=== PATIENT | female | born 1970 | race Caucasian/White ===

== ENCOUNTER 2017-11-12 18:17 | Emergency (ER) | payer OTHER ==
[~2017-11-12] VITALS: Ht 167.6 cm; Wt 59.0 kg
[2017-11-12 18:23] VITALS: BP 154/95; PULSE 62; RESP 16; TEMP 97.7; O2SAT 98
[2017-11-12] MEDS ORDERED: LEXA20TA PO (18:38)
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
[2017-11-12] MEDS ORDERED: ORPHENADRINE INJ 60 MG/2 ML AMP IM ONE (20:15)
[2017-11-12] MEDS ORDERED: KETOROLAC TROMETHAMINE 60 MG/2 ML (IM) VIAL IM ONE (20:15)
[2017-11-12] MEDS ORDERED: CYCL10TA PO (20:31)
[2017-11-12] MEDS ORDERED: IBUP1TAB7 PO (20:31)
== END 2017-11-12 20:37 | disposition home or self-care (01) ==
LOC: PHEFT 18:17
DX: S09.90XA Unspecified injury of head, initial encounter (principal); G44.319 Acute post-traumatic headache, not intractable; S16.1XXA Strain of muscle, fascia and tendon at neck level, initial encounter; F32.9 Major depressive disorder, single episode, unspecified; V43.52XA Car driver injured in collision with other type car in traffic accident, initial encounter; Z72.0 Tobacco use; Z79.899 Other long term (current) drug therapy; Z88.8 Allergy status to other drugs, medicaments and biological substances
CPT/HCPCS: 70450; 72125; 96372; 99285; J1885; J2360